=== PATIENT | male | born 1960 | race Caucasian/White ===

== ENCOUNTER 2020-02-29 19:10 | Emergency (ER) | payer OTHER ==
[~2020-02-29] VITALS: Ht 167.6 cm; Wt 65.8 kg
--- NOTE | 2020-02-29 19:18 | NUR ---
PT AAOX4. MARQUIS C/O "I'M HEARING VOICES TELL ME TO STAB AND SHOOT OTHER PEOPLE". PT DENIES SI. PLACED IN GOWN, ON MONITOR AND PULSE OX. BELONINGS PLACED IN LOCKER. VSS. DENIES ANY PAIN. Addendum: 03/01/20 at 0518 by EVICTOR PT DENIES HI.
--- NOTE | 2020-02-29 19:21 | NUR ---
PROVIDED URINE SAMPLE.
--- NOTE | 2020-02-29 19:54 | NUR ---
AIR BAG BUFFER AT BEDSIDE FOR LABS.
--- NOTE | 2020-02-29 20:00 | NUR ---
CALLED SECURITY FOR WANDING.
[2020-02-29 20:03] LABS: BASOPHILS # (AUTO) 0.1 /CMM (0.0-0.2); BASOPHILS % (AUTO) 0.7 % (0.0-2.0); EOSINOPHILS % (AUTO) 5.7 % (0.0-6.0); HEMATOCRIT 43 % (39-51); HEMOGLOBIN 14.3 g/dL (13.5-17.5); LYMPHOCYTES # (AUTO) 2.3 /CMM (0.8-4.8); LYMPHOCYTES % (AUTO) 31.9 % (20.0-44.0); MEAN CORPUSCULAR HGB CONC 34 g/dl (31.0-36.0); MEAN CORPUSCULAR VOLUME 95 fL (80-96); MONOCYTES # (AUTO) 0.8 /CMM (0.1-1.30); MONOCYTES % (AUTO) 11.5 % (2.0-12.0); NEUTROPHILS # (AUTO) 3.6 /CMM (1.8-8.9); NEUTROPHILS % (AUTO) 50.2 % (43.0-81.0); PLATELET COUNT (AUTO) 186 /CMM (150-450); RED BLOOD CELL COUNT(AUTO) 4.49 MIL/uL (4.5-6.0); WHITE BLOOD COUNT (AUTO) 7.1 K/uL (4.3-11.0)
[2020-02-29 20:19] LABS: CALCIUM, SERUM 8.1 mg/dL (8.5-10.1); POTASSIUM 3.5 mmol/L (3.5-5.1)
[2020-02-29 20:29] LABS: ALBUMIN 3.2 g/dL (3.4-5.0); BILIRUBIN,DIRECT 0.2 mg/dL (0.0-0.2); BILIRUBIN,TOTAL 0.8 mg/dL (0.2-1.0); TOTAL PROTEIN, SERUM 6.5 g/dL (6.4-8.2)
[2020-02-29 20:30] LABS: SALICYLATE 0.5 mg/dL (2.8-20.0)
--- NOTE | 2020-02-29 21:01 | NUR ---
CALLED LAB REGARDING URINE SAMPLE.
[2020-02-29 21:05] LABS: APPEARANCE,URINE Clear (CLEAR); BILIRUBIN,URINE SMALL (NEGATIVE); BLOOD, URINE Negative Ery/uL (NEGATIVE); COLOR,URINE Yellow (YELLOW); KETONES,URINE Trace (NEGATIVE); LEUKOCYTE ESTERASE ,URINE Negative (NEGATIVE); NITRITE, URINE Negative (NEGATIVE); PH,URINE 5.5 (5.0-8.0); PROTEIN,URINE Trace mg/dl (NEGATIVE); UGLUCOSE Negative (NEGATIVE)
[2020-02-29 21:11] LABS: BACTERIA,URINE Rare /HPF (None Seen); RBC,URINE 0-2 /HPF (0-2); SQUAMOUS EPITHELIAL CELL,UR Rare /HPF (None Seen); WBC,URINE 0-2 /HPF (0-3)
--- NOTE | 2020-02-29 22:31 | NUR ---
CLINICALS FAXED TO [facility].
--- NOTE | 2020-03-01 00:17 | NUR ---
Patient is resting comfortably in bed with eyes closed. Easily aroused. VSS
--- NOTE | 2020-03-01 02:45 | NUR ---
PT ASLEEP/ PROVIDED WITH MORE BLANKETS.
--- NOTE | 2020-03-01 04:53 | NUR ---
PT AWAKE IN BED, GIVEN WATER AND FOOD.
--- NOTE | 2020-03-01 05:18 | NUR ---
PT STATED "I WANT TO LEAVE." PT DENIES SI AND HI. STATED HE WAS THANKFUL FOR LETTING HIM SLEEP. NO ACUTE DISTRESS NOTED. AWAKE AND RESPONSIVE.
--- NOTE | 2020-03-01 05:19 | NUR ---
Patient discharged to home in stable condition. Written and verbal after care instructions given. Patient verbalizes understanding of instruction. Pt ambualted with steady gait. vss.
[2020-03-01 05:22] VITALS: BP 122/71
== END 2020-03-01 05:55 | disposition home or self-care (01) ==
LOC: ER 19:14
DX: F23 Brief psychotic disorder (principal); F19.10 Other psychoactive substance abuse, uncomplicated; F10.10 Alcohol abuse, uncomplicated; M25.572 Pain in left ankle and joints of left foot; Y90.0 Blood alcohol level of less than 20 mg/100 ml
CPT/HCPCS: 36415; 73610; 80048; 80076; 80305; 80307; 80329; 81001; 85025; 99284; G0480; 81000-TC